=== PATIENT | male | born 1980 | race African-American/Black ===

== ENCOUNTER 2019-09-03 01:36 | Inpatient (IN) ==
[2019-09-03 02:14] LABS: Basophils % 0.6 %; Eosinophils # 0.2 K/mcL (0.0-0.6); Eosinophils % 2.3 %; Hematocrit 47.5 % (37.5-50.1); Hemoglobin 15.1 g/dL (12.9-16.9); Immature Granulocytes % 0.1 % (0-4); Lymphocytes # 3.2 K/mcL (0.6-4.6); Lymphocytes % 45.8 %; Mean Corpuscular HGB Conc 31.8 g/dL (31.6-35.5); Mean Corpuscular Hemoglobin 28.3 pg (28.0-33.3); Mean Corpuscular Volume 89.1 fL (83.0-100.0); Mean Platelet Volume 11.4 fL (9.4-12.4); Monocytes # 0.9 K/mcL (0.0-1.3); Monocytes % 12.5 %; Neutrophils # 2.7 K/mcL (1.6-8.9); Platelet Count 147 K/mcL (140-400); Red Blood Count 5.33 M/mcL (4.19-5.50); Red Cell Distribution Width 13.5 % (11.5-14.5); Segmented Neutrophils % 38.7 %; White Blood Count 6.9 K/mcL (4.3-11.1)
[2019-09-03 02:17] LABS: Prothrombin Time 10.9 Seconds (9.4-12.1)
[2019-09-03 02:19] LABS: Activated Partial Thrombo Time 37.6 Seconds (26.0-36.0)
[2019-09-03 02:34] LABS: BUN/Creatinine Ratio 12 (6-26); Blood Urea Nitrogen 18 mg/dL (6-20); Calcium 9.4 mg/dL (8.6-10.3); Carbon Dioxide 26 mEq/L (23-29); Chloride 104 mEq/L (98-107); Glucose 97 mg/dL (70-105); Osmolality,Calculated 286 (280-300); Sodium 137 mEq/L (136-145); eGFR For African Americans > 60 (> 60); eGFR For Non-African Americans 50 (> 60)
[2019-09-03] MEDS ORDERED: Aspirin 81 MG TAB.CHEW PO STA (02:40)
[2019-09-03 02:41] LABS: Troponin I 0.08 ng/mL (< 0.04)
[2019-09-03] MEDS ORDERED: *HR* Heparin 5,000 UNIT/ML VIAL IVP ONE ×2 (02:51→03:30)
[2019-09-03] MEDS ORDERED: *HR* Heparin 5,000 UNIT/ML VIAL IVP PRN ×2 (02:51)
[2019-09-03] MEDS: Heparin 25,000 UNIT/250 ML D5W 25,000 UNIT/250 ML IV.SOLN IVC SCH ×2 (03:47→20:57)
[2019-09-03] MEDS ORDERED: Naloxone 0.4 MG/ML INJ IVP PRN (04:59)
[2019-09-03] MEDS ORDERED: *HR* Labetalol 20 MG/4 ML SYRINGE IVP PRN (05:00)
[2019-09-03] MEDS ORDERED: 0.9 % Sodium Chloride 1,000 ML IVC SCH (05:00)
[2019-09-03 05:48] LABS: Basophils % 0.5 %; Eosinophils # 0.2 K/mcL (0.0-0.6); Eosinophils % 2.7 %; Immature Granulocytes % 0.3 % (0-4); Lymphocytes # 2.8 K/mcL (0.6-4.6); Lymphocytes % 46.8 %; Mean Corpuscular HGB Conc 30.4 g/dL (31.6-35.5); Mean Corpuscular Hemoglobin 27.3 pg (28.0-33.3); Mean Corpuscular Volume 89.7 fL (83.0-100.0); Mean Platelet Volume 10.7 fL (9.4-12.4); Monocytes # 0.7 K/mcL (0.0-1.3); Monocytes % 11.2 %; Neutrophils # 2.3 K/mcL (1.6-8.9); Platelet Count 172 K/mcL (140-400); Red Blood Count 5.13 M/mcL (4.19-5.50); Red Cell Distribution Width 13.4 % (11.5-14.5); Segmented Neutrophils % 38.5 %; White Blood Count 5.9 K/mcL (4.3-11.1)
[2019-09-03 06:10] LABS: Alanine Aminotransferase 33 Units/L (7-52); Albumin 3.9 g/dL (3.5-5.7); Albumin/Globulin Ratio 1.4 (1.1-2.2); Alkaline Phosphatase 44 Units/L (34-104); Aspartate Amino Transferase 39 Units/L (13-39); BUN/Creatinine Ratio 11 (6-26); Bilirubin,Total 0.5 mg/dL (0.3-1.0); Blood Urea Nitrogen 16 mg/dL (6-20); Calcium 9.2 mg/dL (8.6-10.3); Carbon Dioxide 25 mEq/L (23-29); Chloride 104 mEq/L (98-107); Chol/HDL Ratio 7.8 (0-4.9); Cholesterol 248 mg/dL (< 200); Creatine Kinase 1751 Units/L (30-223); Globulin 2.8 g/dL (2.4-3.5); Glucose 116 mg/dL (70-105); HDL Cholesterol 32 mg/dL (40-59); LDL Cholesterol,Calculated 189 mg/dL (0-99); Osmolality,Calculated 286 (280-300); Phosphorous 3.7 mg/dL (2.7-4.5); Sodium 137 mEq/L (136-145); Total Protein 6.7 g/dL (6.4-8.9); Triglycerides 134 mg/dL (< 150); eGFR For African Americans > 60 (> 60); eGFR For Non-African Americans 56 (> 60)
[2019-09-03 07:56] LABS: Estimated Average Glucose 146 mg/dl
[2019-09-03] MEDS ORDERED: amLODIPine 5 MG TABLET PO SCH (09:00)
[2019-09-03] MEDS ORDERED: Dextrose Gel 15 GM/37.5 ML TUBE PO PRN ×2 (09:35)
[2019-09-03] MEDS ORDERED: D5% in Water 1,000 ML IVC PRN (09:35)
[2019-09-03] MEDS ORDERED: *HR* Dextrose 50 % in Water (Syg) 50 ML SYRINGE IVP PRN (09:35)
[2019-09-03] MEDS ORDERED: amLODIPine 5 MG TABLET PO ONE (09:37)
[2019-09-03] MEDS: Insulin LISPRO 300 UNITS/3 ML VIAL SQ SCH ×4 (10:22→23:58)
[2019-09-03 11:55] LABS: Bilirubin,Urine Negative (Negative); Blood,Urine Trace (Negative); Clarity,Urine Clear (Clear); Color,Urine Yellow (Yellow); Glucose,Urine (UA) Normal (Normal); Ketones,Urine Negative (Negative); Leukocyte Esterase,Urine Negative (Negative); Nitrite,Urine Negative (Negative); Protein,Urine 100 mg/dL (Neg-Trace); Specific Gravity,Urine 1.016 (1.010-1.025); Urobilinogen,Urine Normal (Normal)
[2019-09-03 11:58] LABS: Bacteria,Urine None Seen per hpf (None-Few); Hyaline Casts,Urine None Seen per lpf (None-Few); Squamous Epithelial Cell,Urine Few per lpf (None-Few); WBC,Urine 0-3 per hpf (0-3)
[2019-09-03 12:05] LABS: Amphetamine Screen,Urine Negative ng/mL (Cutoff=1000); Barbiturate Screen,Urine Negative ng/mL (Cutoff=200); Benzodiazepines Screen,Urine Negative ng/mL (Cutoff=200); Cannabinoid Screen,Urine Positive ng/mL (Cutoff = 50); Cocaine Screen,Urine Negative ng/mL (Cutoff= 300); Opiate Screen,Urine Negative ng/mL (Cutoff=300); Phencyclidine Screen,Urine Negative ng/mL (Cutoff=25)
[2019-09-04] MEDS: Insulin LISPRO 300 UNITS/3 ML VIAL SQ SCH ×3 (05:36→19:07)
[2019-09-04] MEDS ORDERED: Regadenoson 0.4 MG/5 ML SYRINGE IVP ONE (06:37)
[2019-09-04 07:57] LABS: BUN/Creatinine Ratio 9 (6-26); Blood Urea Nitrogen 11 mg/dL (6-20); Calcium 9.3 mg/dL (8.6-10.3); Carbon Dioxide 26 mEq/L (23-29); Chloride 103 mEq/L (98-107); Creatine Kinase 1085 Units/L (30-223); Glucose 111 mg/dL (70-105); Magnesium 1.9 mg/dL (1.6-2.6); Osmolality,Calculated 282 (280-300); Phosphorous 3.5 mg/dL (2.7-4.5); Potassium 3.9 mEq/L (3.5-5.1); Sodium 136 mEq/L (136-145); eGFR For African Americans > 60 (> 60); eGFR For Non-African Americans > 60 (> 60)
[2019-09-04] MEDS: *HR* Labetalol 20 MG/4 ML SYRINGE IVP PRN ×3 (07:58→23:31)
[2019-09-04] MEDS: amLODIPine 5 MG TABLET PO SCH (09:32)
[2019-09-04] MEDS: Aspirin 81 MG TAB.CHEW PO SCH (09:32)
[2019-09-04 10:43] LABS: Hemoglobin 15.4 g/dL (12.9-16.9); Mean Platelet Volume 9.8 fL (9.4-12.4); Red Cell Distribution Width 13.4 % (11.5-14.5)
[2019-09-04 10:44] LABS: Eosinophils % 1.6 %; Immature Granulocytes % 0.2 % (0-4)
[2019-09-04 10:45] LABS: Basophils % 0.6 %; Eosinophils # 0.1 K/mcL (0.0-0.6); Hematocrit 49.3 % (37.5-50.1); Lymphocytes # 2.1 K/mcL (0.6-4.6); Lymphocytes % 40.9 %; Mean Corpuscular HGB Conc 31.2 g/dL (31.6-35.5); Mean Corpuscular Hemoglobin 27.6 pg (28.0-33.3); Mean Corpuscular Volume 88.4 fL (83.0-100.0); Monocytes # 0.5 K/mcL (0.0-1.3); Monocytes % 10.8 %; Neutrophils # 2.3 K/mcL (1.6-8.9); Red Blood Count 5.58 M/mcL (4.19-5.50); Segmented Neutrophils % 45.9 %
[2019-09-04] MEDS ORDERED: 0.9 % Sodium Chloride 2,000 ML ONE (13:25)
[2019-09-04] MEDS ORDERED: ISOVUE-370 200 ML INFUS..BTL ONE ×2 (13:25→14:36)
[2019-09-04] MEDS ORDERED: Nitroglycerin 1,000 MCG/10 ML VIAL IV ONE (13:25)
[2019-09-04] MEDS ORDERED: *HR* Heparin 10,000 UNIT/10 ML VIAL ONE (13:25)
[2019-09-04] MEDS ORDERED: Heparin 1,000 UNITS/500 mL 500 ML ONE (13:25)
[2019-09-04] MEDS ORDERED: *HR* Midazolam HCl 2 MG/2 ML VIAL ONE (14:00)
[2019-09-04] MEDS ORDERED: *HR* FentaNYL (PF) 100 MCG/2 ML VIAL ONE (14:01)
[2019-09-04] MEDS ORDERED: Tirofiban 12.5 MG/250ML 12.5 MG/250 ML BAG ONE (14:34)
[2019-09-04] MEDS ORDERED: *HR* Ticagrelor 90 MG TABLET ONE (15:15)
[2019-09-04] MEDS ORDERED: Tirofiban 12.5 MG/250ML 12.5 MG/250 ML BAG IVC SCH (15:30)
[2019-09-04] MEDS: carvediloL 6.25 MG TABLET PO SCH (17:29)
[2019-09-04] MEDS: *HR* Heparin 5,000 UNIT/ML VIAL SQ SCH (17:33)
[2019-09-04] MEDS: *HR* Ticagrelor 90 MG TABLET PO SCH (20:57)
[2019-09-05 02:40] LABS: BUN/Creatinine Ratio 9 (6-26); Blood Urea Nitrogen 12 mg/dL (6-20); Calcium 9.6 mg/dL (8.6-10.3); Carbon Dioxide 22 mEq/L (23-29); Chloride 103 mEq/L (98-107); Creatine Kinase 776 Units/L (30-223); Glucose 103 mg/dL (70-105); Magnesium 1.9 mg/dL (1.6-2.6); Osmolality,Calculated 280 (280-300); Phosphorous 3.7 mg/dL (2.7-4.5); Potassium 3.6 mEq/L (3.5-5.1); Sodium 135 mEq/L (136-145); eGFR For African Americans > 60 (> 60); eGFR For Non-African Americans > 60 (> 60)
[2019-09-05] MEDS: Insulin LISPRO 300 UNITS/3 ML VIAL SQ SCH ×2 (05:57→06:07)
[2019-09-05] MEDS: *HR* Heparin 5,000 UNIT/ML VIAL SQ SCH (05:58)
[2019-09-05] MEDS ORDERED: lisinopriL 5 MG TABLET PO SCH (09:00)
[2019-09-05] MEDS: Aspirin 81 MG TAB.CHEW PO SCH (10:05)
[2019-09-05] MEDS: *HR* Ticagrelor 90 MG TABLET PO SCH (10:05)
[2019-09-05] MEDS: amLODIPine 5 MG TABLET PO SCH (10:05)
[2019-09-05] MEDS: carvediloL 6.25 MG TABLET PO SCH (10:05)
[2019-09-05 11:43] VITALS: BP 160/90
== END 2019-09-05 13:27 | disposition home or self-care (01) | DRG 174 ==
LOC: EMEROOARM 01:36 → 3BNU 01:36 → SUATTDRO 03:39 → 3BNU 04:00
PROVIDERS: ADMIT Internal Medicine; ATTEND Internal Medicine